=== PATIENT | male | born 2000 | race Caucasian/White ===

== ENCOUNTER 2023-01-25 15:26 | Emergency (ER) | payer OTHER, SELFPAY ==
[2023-01-25 15:39] VITALS: BP 142/82; PULSE 73; RESP 16; TEMP 36.8; O2SAT 100; BMI 25.0
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
--- NOTE | 2023-01-25 16:01 | PC.NURSE ---
Girlfriend reports some changes in speech and it not being as clear.
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
== END 2023-01-25 17:21 | disposition home or self-care (01) ==
PROVIDERS: Emergency Provider Emergency Medicine; PCP Family Medicine
DX: S06.0X0A Concussion without loss of consciousness, initial encounter (principal); S00.81XA Abrasion of other part of head, initial encounter; H53.8 Other visual disturbances; W18.09XA Striking against other object with subsequent fall, initial encounter
CPT/HCPCS: 70450; 70486; 72125; 99281; 99284